=== PATIENT | male | born 1990 | race Caucasian/White ===

== ENCOUNTER 2018-08-04 21:17 | Emergency (ER) | payer OTHER, SELFPAY ==
[2018-08-04 21:24] VITALS: BP 123/71; PULSE 101; RESP 18; TEMP 36.4; O2SAT 99; BMI 25.7
--- NOTE | 2018-08-04 21:25 | ED_ITS ---
HPI - Chest Pain General Chief Complaint: Chest Pain Stated Complaint: Chest Pain Time Seen by Provider: 08/04/18 21:25 Source: patient Mode of arrival: EMS Limitations: no limitations History of Present Illness HPI narrative: The patient developed achy lower midsternal chest pain yesterday. The pain became quite sharp today. He has some radiation to the left arm and elbow. He has no radiation to the back. He has no associated dyspnea, weakness or dizziness. He has no recent illness. He has no known history of cardiac disease. He has chronic back pain, he has undergone lumbar surgery for a herniated disc. [place] is [place] tried him with Cymbalta for pain management. From the Cymbalta he developed tachycardia, and other discomforts. The Cymbalta was stopped 6 days ago. He was not symptomatic between then and 2 days ago. He is currently taking no medications for his low back pain. He has no weakness and numbness in the lower extremities. He denies hypertension, high cholesterol or diabetes. There is no obvious family history of early cardiac disease. He chews tobacco. He underwent an echocardiogram March 2018. Other than trace mitral regurg, the study was otherwise normal. Related Data Home Medications Medication Instructions Recorded Confirmed duloxetine [Cymbalta] 30 mg PO BID 08/03/18 08/03/18 ibuprofen 400 mg PO Q4-6H PRN 08/03/18 08/03/18 omeprazole 20 mg PO DAILY 08/03/18 08/03/18 Previous Rx's Medication Instructions Recorded ibuprofen 600 mg PO TID-QID PRN #60 tab 08/04/18 Allergies Allergy/AdvReac Type Severity Reaction Status Date / Time No Known Drug Allergies Allergy Verified 08/04/18 21:27 Review of Systems Constitutional Reports as per HPI, Denies chills, Denies fever(s), Denies lethargy and Denies weakness Eyes Denies change in vision ENT Ears, Nose, Mouth, and Throat: Denies dizziness, Denies neck pain and Denies throat swelling Cardiovascular Reports chest pain, Denies irregular heart rhythm, Denies lightheadedness, Denies palpitations, Denies dyspnea, Denies dyspnea on exertion and Denies orthopnea Respiratory Denies cough, Denies dyspnea, Denies dyspnea on exertion and Denies wheezing Gastrointestinal Gastrointestinal: Denies abdominal pain, Denies diarrhea, Denies nausea and Denies vomiting Genitourinary Denies urinary frequency and Denies urinary urgency Musculoskeletal Reports back pain, Denies myalgias and Denies neck pain Integumentary/Breasts Denies erythema and Denies rash Neurologic Denies confusion, Denies dizziness and Denies weakness Psychiatric Denies confusion Endocrine Denies palpitations Hematologic/Lymphatic Denies easy bleeding Allergic/Immunologic Denies throat swelling and Denies wheezing [facility] Medical History Chest pain (Acute) MRSA (methicillin resistant Staphylococcus aureus) (Acute) Numbness (Acute) Numbness and tingling of both legs (Acute) Peritonsillar abscess (Acute) [place] teeth removed (Acute) Surgical History H/O lumbar discectomy (Acute) Social History Smoking Status: Unknown if ever smoked Smokeless tobacco user: chewing tobacco alcohol intake: current Exam Initial Vital Signs Initial Vital Signs: Vital Signs Temperature 97.5 F L 08/04/18 21:24 Pulse Rate 101 H 08/04/18 21:24 Respiratory Rate 18 08/04/18 21:24 Blood Pressure 123/71 08/04/18 21:24 Pulse Oximetry 99 08/04/18 21:24 Const General: cooperative, healthy appearing, comfortable, well developed and well groomed Nutritional Appearance: well nourished Orientation: alert, awake, oriented x3 and not confused [facility] Head: normocephalic and atraumatic Mouth: oral mucosae normal and moist mucous membranes Throat: posterior oropharynx normal Neck Neck: No anterior neck swelling and No lymphadenopathy Chest Chest: normal inspection of the chest and localized rib tenderness with anteroposterior compression Resp Effort & Inspection: normal respiratory effort and able to speak in complete sentences Auscultation: clear to auscultation bilaterally, no rales, no rhonchi and no wheezes Cardio Rate: regular rate Rhythm: regular rhythm Heart Sounds: no click, no gallops, no murmurs and no rubs Pulses: normal peripheral pulses GI Inspection: non-distended Palpation: soft, no hepatosplenomegaly, No guarding, No pulsatile mass and No tender Auscultation: normal bowel sounds Back/Spine/Pelvis Back: normal to inspection and No CVA tenderness Cervical Spine: cervical ROM normal and No pain with cervical ROM Thoracic/Lumbar Spine: thoracic and lumbar spine normal to inspection Skin General: no rashes or lesions noted Neuro General: alert, oriented x3, gait normal and no focal motor deficits Speech: speech normal Extrem General: full ROM, no clubbing, cyanosis or edema, no pedal edema and no calf tenderness Course Orders Ordered: ED Orders 08/04/18 21:25 Complete Blood Count AUTO DIFF Stat Comprehensive Metabolic Panel Stat D Dimer Stat Partial Thromboplastin Time Stat Prothrombin Time INR Stat Troponin & CK Cardiac Panel Stat 08/04/18 21:36 XR chest 1V Stat EKG-12 Lead Stat Discontinued Medications Ketorolac Tromethamine (Toradol) 30 mg IV NOW ONE Stop: 08/04/18 21:38 Last Admin: 08/04/18 21:43 Dose: 30 mg Vital Signs - 8 hr 08/04/18 21:24 08/04/18 22:00 08/04/18 23:08 Temperature 97.5 F L Pulse Rate 101 H 89 86 Respiratory Rate 18 19 18 Blood Pressure 123/71 Blood Pressure [Left Arm] 117/72 139/95 H Pulse Oximetry 99 98 97 MDM - Chest Pain Lab Data Result diagrams: 08/04/18 21:25 08/04/18 21:25 Lab Results 08/04/18 08/04/18 08/04/18 Range/Units 21:25 21:25 21:25 WBC 10.7 (4.5-11.0) X10^3/uL RBC 5.02 (4.5-5.9) X10^6/uL Hgb 15.0 (13.5-17.5) g/dL Hct 43.5 (41-53) % MCV 86.6 (80-100) fL MCH 29.9 (26-34) PG MCHC 34.6 (30-36) % RDW 13.6 (11.6-14.8) % Plt Count 358 (150-400) X10^3/uL Neut % (Auto) Not Reportable Lymph % (Auto) Not Reportable [place] % (Auto) Not Reportable Eos % (Auto) Not Reportable Baso % (Auto) Not Reportable Total Counted 100 Seg Neutrophils % 71.0 H (38-70) % Lymphocytes % (Manual) 22.0 L (25-45) % Monocytes % (Manual) 5.0 (2-11) % Eosinophils % (Manual) 1.0 L (2-4) % Basophils % (Manual) 1.0 (0-1) % Neutrophils # (Manual) 7597 H (0788-4559) /uL RBC Morphology Normal morphology PT 11.2 (10.1-12.7) SECONDS INR 1.0 (0.9-1.3) APTT 27 (26.4-36.2) SECONDS D-Dimer < 200 (<230) ng/mL Sodium 142 (137-145) mmol/L Potassium 4.1 (3.4-5.1) mmol/L Chloride 101 (98-107) mmol/L Carbon Dioxide 30 (22-32) mmol/L BUN 10 (9-20) mg/dL Creatinine 0.90 (0.66-1.25) mg/dL Estimated GFR > 60.0 (>60) mL/min BUN/Creatinine Ratio 11.1 (6-22) Glucose 100 (70-100) mg/dL Calcium 9.5 (8.4-10.2) mg/dL Total Bilirubin 0.5 (0.2-1.3) mg/dL AST 54 (17-59) IU/L ALT 84 H (21-72) IU/L Alkaline Phosphatase 58 (38-126) U/L Total Creatine Kinase 136 (55-170) U/L CK-MB (CK-2) 0.78 (<2.37) ng/mL CK-MB (CK-2) Rel Index 0.6 L (1.5-5.0) % Troponin I < 0.012 (0.01-0.034) ng/mL Total Protein 7.8 (6.3-8.2) g/dL Albumin 4.7 (3.5-5.0) g/dL Globulin 3.1 (1.7-4.1) g/dL Albumin/Globulin Ratio 1.5 (1.0-2.8) Imaging Data Chest x-ray: My impression: Normal ECG Data Attestation: I personally reviewed and interpreted this ECG as follows: MDM Narrative Medical decision making narrative: The patient has no evidence of an acute coronary event, clotting issues, infection, or lung abnormalities. He has improved with Toradol. Exam is consistent with costochondritis. He will be discharged on ibuprofen. Discharge Plan Departure Patient Disposition: Home Clinical Impression: Acute costochondritis Instructions: Costochondritis Activity Restrictions/Additional Instructions: Motrin 600 mg every 6 hr as needed for pain. Follow up with her doctor if symptoms persist. Return here for significant worsening of symptoms, shortness of breath, coughing up blood, or feeling like her going to pass out. Prescriptions: New ibuprofen 600 mg tablet 600 mg PO TID-QID PRN (Reason: pain) Qty: 60 RF: 0 No Action ibuprofen 400 mg Tablet 400 mg PO Q4-6H PRN (Reason: pain) RF: 0 omeprazole 20 mg Capsule,Delayed Release(Dr/Ec) 20 mg PO DAILY RF: 0 duloxetine [Cymbalta] 30 mg Capsule,Delayed Release(Dr/Ec) 30 mg PO BID RF: 0
--- NOTE | 2018-08-04 21:34 | PC.NURSE ---
intermittent sharp chest pain, began yesterday, greatly increased today while ambulating from vehicle, decreased from 09/06 to 06/06 following 10mg MS and Nitro SL x2 per ems, NSR on monitor, denies soa/dizziness/nausea/diarrhea/cough/trauma or recent illness, breath sounds clear/equal
--- NOTE | 2018-08-04 21:36 | DI.RAD.S_ITS ---
PROCEDURE: XR CHEST 1V INDICATIONS: chest pain TECHNIQUE: One view of the chest was acquired. COMPARISON: None. FINDINGS: Surgical changes and devices: None. Lungs and pleura: No pleural effusions or pneumothorax. Lungs are clear. Mediastinum: Mediastinal contours appear normal. Heart size is normal. Bones and chest wall: No suspicious bony lesions. Overlying soft tissues appear unremarkable. IMPRESSION: No acute cardiopulmonary pathology. Dictated by: Tito Renae M.D. on 08/05/2018 at 10:11 Approved by: Tito Renae M.D. on 08/05/2018 at 10:12
[2018-08-04] MEDS: KETOROLAC 60 MG/2 ML VIAL 30 MG IV (21:43)
[2018-08-04 21:48] LABS: Prothrombin Time 11.2 SECONDS (10.1-12.7)
[2018-08-04 21:51] LABS: Hematocrit 43.5 % (41-53); Mean Corpuscular HGB Conc 34.6 % (30-36); Mean Corpuscular Hemoglobin 29.9 PG (26-34); Mean Corpuscular Volume 86.6 fL (80-100); PTT Partial Thromboplastin Tim 27 SECONDS (26.4-36.2); Platelet Count 358 X10^3/uL (150-400); Red Blood Cell Count 5.02 X10^6/uL (4.5-5.9); Red Cell Distribution Width 13.6 % (11.6-14.8); White Blood Cell Count 10.7 X10^3/uL (4.5-11.0)
[2018-08-04 21:52] LABS: Alanine Aminotransferase 84 IU/L (21-72); Albumin 4.7 g/dL (3.5-5.0); Albumin Globulin Ratio 1.5 (1.0-2.8); Alkaline Phosphatase 58 U/L (38-126); Aspartate Aminotransferase 54 IU/L (17-59); BUN Creatinine Ratio 11.1 (6-22); Bilirubin Total 0.5 mg/dL (0.2-1.3); Blood Urea Nitrogen 10 mg/dL (9-20); Calcium 9.5 mg/dL (8.4-10.2); Carbon Dioxide 30 mmol/L (22-32); Chloride 101 mmol/L (98-107); Creatine Kinase 136 U/L (55-170); Estimated Glomerular Filt Rate > 60.0 mL/min (>60); Globulin 3.1 g/dL (1.7-4.1); Glucose 100 mg/dL (70-100); HEMOLYSIS 39 (0-50); Potassium 4.1 mmol/L (3.4-5.1); Sodium 142 mmol/L (137-145); Total Protein 7.8 g/dL (6.3-8.2)
[2018-08-04 21:57] LABS: Add Manual Diff / Slide Review YES; D Dimer < 200 ng/mL (<230)
[2018-08-04 22:00] VITALS: BP 117/72; PULSE 89; RESP 19; O2SAT 98
[2018-08-04 22:06] LABS: Troponin I < 0.012 ng/mL (0.01-0.034)
[2018-08-04 22:07] LABS: CKMB % Relative Index 0.6 % (1.5-5.0); Creatine Kinase MB 0.78 ng/mL (<2.37)
[2018-08-04 22:11] LABS: Neutrophils Absolute Manual 7597 /uL (3000-5900); RBC Morphology Normal Morphology; Total Cells Counted 100
[2018-08-04 23:08] VITALS: BP 139/95; PULSE 86; RESP 18; O2SAT 97
== END 2018-08-04 23:18 | disposition home or self-care (01) ==
PROVIDERS: Emergency Provider Emergency Medicine
DX: M94.0 Chondrocostal junction syndrome [Tietze] (principal)
CPT/HCPCS: 71045; 80053; 82550; 82553; 84484; 85025; 85379; 85610; 85730; 93005; 93010; 96374; 99282; 99285; J1885

== ENCOUNTER 2018-08-22 05:46 | Inpatient (IN) | payer OTHER, SELFPAY ==
[2018-08-03 13:59] VITALS: BMI 26.0
[2018-08-22] VITALS (14 sets, daily range): BP systolic 120–155; BP diastolic 81–99; PULSE 78–100; RESP 9–24; TEMP 36.1–36.8; O2SAT 93–99; BMI 26.0
--- NOTE | 2018-08-22 | DI.RAD.S_ITS ---
PROCEDURE: XR LUMBAR SPINE 2-3V INDICATIONS: L5-S1 TLIF AND REVISION DISCECTOMY FINDINGS: 2 limited intraoperative fluoroscopically stored images of the lumbosacral spine were obtained for intraoperative hardware localization purposes. These images are not meant for diagnostic purposes. Intraoperative findings related to a L5-S1 fusion are present. IMPRESSION: Intraoperative images obtained during the patient's lumbosacral fusion procedure. Dictated by: Adis Richard M.D. on 08/22/2018 at 9:52 Approved by: Adis Richard M.D. on 08/22/2018 at 10:00
[2018-08-22] MEDS: LACTATED RINGERS 1,000 ML 42 ML IV (07:04)
--- NOTE | 2018-08-22 07:33 | PM.PREOP ---
Pre-operative Note Interval Note Pre-op Check: Yes History & Physical Reviewed by Physician and Yes Exam Performed Changes: No
--- NOTE | 2018-08-22 07:33 | PM.OP.1 ---
Operative Date/Time/Diagnoses Date of procedure: 08/22/18 Time of procedure: 10:43 Pre-op diagnosis: lumbar stenosis with radiculopathy Lumbar disc herniation with radiculopathy History of lumbar diskectomy Post-op diagnosis: same Procedure & Clinicians Procedure: L5S1 revision laminotomy on left L5S1 TLIF (post/post innerbody fusion) screws cage icbg microscope placement of epidural catheter Same procedure as scheduled: Yes Indications: [age] year old male with intractable pain from recurrent disc herniation. They had failed conservative management and requested operative intervention. Risks and benefits of surgery were discussed and appropriate consents were obtained. Surgeon: José Miguel Peace Oiler And Greaser: Marva Bowie Anesthesia Type: General Operative Notes Findings: none Closure Type: primary Specimen(s): none sent Implants & Drains: NuVasive Reline MAS screws Globus Rise cage Applied: catheter Estimated Blood Loss (mL): 50 Blood products transfused: none Procedure in detail: The patient was brought to the operating room and intubated on the table. A time-out was performed. They were then rolled over to the well-padded Christian table in the prone position. Preoperative antibiotics were given. The back was prepped and draped in the standard sterile fashion. Using fluoroscopy, a 4 cm longitudinal incision was made to the well-marked left of the midline. We used Bovie to come down to and split the lumbodorsal fascia. Using fluoroscopy and monitoring, we then percutaneously placed Jamshidi needles down the pedicles of L5 and S1 on the left side. These were changed out to guidewires and then we tapped and then placed the NuVasive MAS Precept screw shanks. We then opened up the retractors and used Bovie to clear up the posterolateral gutter as well as medially along the lamina to the spinous processes. A bur was used to decorticate the transverse processes. Using a combination of bur and Kerrison rongeurs, a revision left-sided laminotomy was performed at L5-S1. We had to dissect through the scar tissue to expose the dura and free it up from the bone then work out medially and laterally until we could completely free up the exiting nerve root through the facet. We had to remove the adherent facet cyst as well. This required a near complete facetectomy. This was separate and distinct from the TLIF approach as this was a revision surgery with significant scar tissue and much more complex and lengthy than just a standard approach for fusion.. We then began the TLIF prep. A complete facetectomy was finished on this side at L5-S1. We carefully retract the dura across the scar tissue until we could expose the disc. The disc was prepped with bipolar and then an annulotomy was performed. We performed a complete diskectomy using a combination of paddles, molly, Kerrison, and curettes. We distracted the disc using a paddle and locked the retractor in an open position. We then filled the disc space with Osteocell bone graft. We then placed the globus Rise cage under fluoroscopy and then filled this in with more bone graft. The distraction on the retractor was released to compress down. This completed the posterior interbody fusion portion of the TLIF at L5-S1. We then placed the screw heads, andrea, and locked down the set screws. The wound was copiously irrigated. A small stab incision was made over the PSIS. We used a Jamshidi needle to aspirate several mL of bone marrow from the pelvis. This was mixed with the remaining Osteocell and combined with all of the locally harvested bone graft and placed in the posterolateral gutter for the posterior fusion of the TLIF at L5-S1. An epidural catheter was then placed in the spinal canal by carefully depressing the dura and advancing it 6 cm cephalad under the remaining lamina without resistance. The muscle fascia was closed. The catheter was then injected with a solution containing 4 mL of 0.5% Marcaine, 1 mg Stadol, 4 mg Duramorph, and 100 mcg of fentanyl. This was injected without resistance and the catheter was pulled. We then went to the opposite side. Again using fluoroscopy, a 3 cm incision was made and Bovie was used to come down to split the fascia. Using neural monitoring and fluoroscopy, Jamshidi needles were advanced down the pedicles of L5 and S1 on the right side. These were switched over guidewires, tapped, and screws placed. We then placed a andrea and locked the set screws on this side. The wound was irrigated. The fascia was closed. Vancomycin powder was placed in the wounds. The superficial and skin were closed. A sterile dressing was placed. The patient was then rolled over extubated and brought to recovery room without complications. Complications: none Condition: stable Disposition: PACU Plan for aftercare: Inpatient. Up with physical therapy.
[2018-08-22] MEDS: CEFAZOLIN 2 GM/100 ML FROZ.PIGGY IV ×2 (07:51→16:04)
--- NOTE | 2018-08-22 08:34 | SUR.OPER ---
Prone on spine table, head in foam head support, padded chest and pelvic supports, gel pad at knees, lower legs supported by pillows; nipples, genitalia and toes free of pressure, arms secured on foam padded arm boards at <90 degrees abduction. Tape over blanket at thigh secured to table.
[2018-08-22] MEDS: THROMBIN (BOVINE) 5,000 UNIT VIAL 5000 UNIT TOP (08:45)
[2018-08-22] MEDS: SODIUM CHLORIDE 0.9% 1,000 ML, GENTAMICIN 80 MG IRR (08:46)
[2018-08-22] MEDS: VANCOMYCIN 1,000 MG VIAL 1000 MG TOP (08:46)
[2018-08-22] MEDS: BUPIVACAINE 0.5% (PF) 4 ML, MORPHINE-PF 4 MG, BUTORPHANOL 1 MG, fentaNYL 100 MCG INJ (10:00)
[2018-08-22] MEDS: fentaNYL 100 MCG/2 ML INJ 50 MCG IV ×2 (11:30→11:38)
--- NOTE | 2018-08-22 12:32 | PC.NURSE ---
Admit Note: Patient arrived via bed from pacu at 1200 this shift. Patient alert times 3 but drowsy. Patient easily awakens. No acute distress, dressing clean, dry, intact. Will continue to monitor. Tan to gravity.
[2018-08-22] MEDS: LACTATED RINGERS 1,000 ML 125 ML IV ×2 (12:34→20:37)
[2018-08-22] MEDS: HYDROCODONE/ACET 5/325 TABLET 2 TAB PO ×2 (12:59→19:02)
[2018-08-22] MEDS: hydrOXYzine pamoate 25 MG CAPSULE PO ×2 (13:00→19:02)
[2018-08-22] MEDS: CELECOXIB 200 MG CAPSULE 400 MG PO (14:16)
--- NOTE | 2018-08-22 15:30 | PT.IIE ---
Current Diagnoses Spinal stenosis, lumbar region with neurogenic claudication (08/22/18) Intervertebral disc disorders with radiculopathy, lumbar region (08/22/18) Strain of muscle, fascia and tendon of lower back, subsequent encounter (08/22/18) Other specified postprocedural states (08/22/18) Surgery Performed Operation Date: 08/22/18 07:45 Actual Procedures p L5-S1 Revision Discectomy and TLIF - José Miguel Peace MD Surgical History (Last Reviewed 08/04/18 @ 21:43 by Hoang Perla MD) H/O lumbar discectomy (Acute) Medical History (Last Reviewed 08/04/18 @ 21:43 by Hoang Perla MD) Chest pain (Acute) MRSA (methicillin resistant Staphylococcus aureus) (Acute) Numbness (Acute) Numbness and tingling of both legs (Acute) Peritonsillar abscess (Acute) [place] teeth removed (Acute) Physical Therapy Inpatient Evaluation/Re-Eval M1 PT/OT-IP Prior Functional Status Start: 08/22/18 17:17 Freq: NEEDED Status: Active Protocol: Document 08/22/18 15:30 AB (Rec: 08/22/18 17:32 AB [email or web address]) Medical Review Prior Functional Status Medical History Reviewed Yes Communication able to make needs known Mobility and Gait pt stated that he is independent with all mobilities and ambulation without AD but may require assistance with betting his shoes on due to his back issues Prior Functional Level (Other details) Pt lives in [place] and 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 stated that he has h/o falls due to knees giving out on him . Last fall was last tuesday with R knee giving out but prior to that, mostly the L knee gives out on him. Social History Household Members none Living Arrangements House Number of Floors (Floors) One Floor Number of Stairs To Enter/Railing? has 5 platform steps down to get into front door; has 1 step up from living room to kitchen/bedroom area Home Environment Standard Height Toilet Walk in Shower Home Equipment Grab Bars In Shower Additional Social History Comment pt plans to go home and his girlfriend and father will assist him. M2 PT-IP Current Condition Start: 08/22/18 17:17 Freq: NEEDED Status: Active Protocol: Document 08/22/18 15:30 AB (Rec: 08/22/18 17:32 AB [email or web address]) Physical Therapy Current Condition Current Condition Evaluation Date 08/22/18 Treatment Diagnosis s/p L5S1 revision laminotomy L ; TLIF; difficulty in walking Onset Date 08/22/18 Precautions Lumbar Precautions Log Roll No Twisting Limit Bending Lifting Restriction of 10 lbs Gait Belt above Incisional Area M3 PT-IP Subjective Start: 08/22/18 17:17 Freq: NEEDED Status: Active Protocol: Document 08/22/18 15:30 AB (Rec: 08/22/18 17:32 AB [email or web address]) Subjective Physical Therapy Visit Type Type Initial Evaluation Visit Start Time 15:30 Visit Stop Time 16:24 Total Visit Minutes 54 Number of MOVEMENT EDUCATION SPECIALIST Visits 0 Therapy Pain Assessment Pain When Pain Assessed At Rest Pain Present Pain Present Pain Reported Location Lower Back Intensity 8 Scale Used Numeric (1 - 10) Pain Behaviors Calling Out Facial Grimacing Guarding Pain Management Techniques Re-positioning Timing of Activity with Medications M4 PT-IP Mobility and Gait Start: 08/22/18 17:17 Freq: NEEDED Status: Active Protocol: Document 08/22/18 15:30 AB (Rec: 08/22/18 17:32 AB [email or web address]) PT-Bed Mobility Assessment Rolling Type of Rolling Log Rolling Level of Assist Standby Assistance Supine to Sit Supine to Sit Standby Assistance Sit to Supine Sit to Supine Minimal Assistance Scooting Scooting to Edge of Bed Moderate Assistance Scooting Up and Down in Bed Moderate Assistance Maximum Assistance PT-Transfer Assessment Sit to and From Stand Sit to and from Stand Moderate Assistance Maximum Assistance 1 Person Assistance Use of Upper Extremities Equipment Transfer Assistive Device Bed Rail Front Wheeled Walker Orthotic/Prosthetic Devices or Brace: No Gait Assessment Gait Gait Assistance Required: Moderate Assistance Maximum Assistance Distance (Feet) 12 Able to Maintain Weight Bearing Status Yes During Gait Assistive Devices Assistive Device Gait Belt Front Wheeled Walker Orthotic/Prosthetic Devices or Brace: No Gait Deviations General Gait Pattern Antalgic Decreased Stride Length Decreased Feet Clearance Step-to Gait Factors Limiting Gait Function Factors Limiting Gait Function Decreased Activity Tolerance Decreased Sensation Decreased Strength Difficulty Following Directions Limited Range of Motion Pain Poor Balance Poor Safety Awareness Comments Gait Comments pt with c/o increase pain with mobility/ambulation. Pt ambulated using FWW mod to max A and presents with shuffling gait. PT-Balance Assessment Sitting Balance and Reactions Static Sitting Balance Ability Good Dynamic Sitting Balance Ability Good Standing Balance and Reactions Static Standing Balance Ability Fair Dynamic Standing Balance Ability Fair Device Used FWW M5 PT-IP Objective Assessments Start: 08/22/18 17:17 Freq: NEEDED Status: Active Protocol: Document 08/22/18 15:30 AB (Rec: 08/22/18 17:32 AB [email or web address]) Orientation Orientation/Cognition Level of Alertness Alert Orientation Name Age Birthday Month Date Year Day of Week Place Situation Safety Awareness Decreased Safety Awareness Gross Range of Motion Lower Extremity ROM Assessment Bilaterally Impaired Impairments pain limiting ROM on BLE Strength Lower Extremity Strength Assessment Bilaterally Impaired Comments Strength Comments LLE weaker than RLE LLE 3-/5 RLE 3+/5 Sensation Assessment Sensation Gross Sensation Left LE Impaired Light Touch Impaired M6 PT-IP Treatment Start: 08/22/18 17:17 Freq: NEEDED Status: Active Protocol: Document 08/22/18 15:30 AB (Rec: 08/22/18 17:32 AB [email or web address]) Physical Therapy Treatment Education Education Provided Precautions Weight Bearing Status Post-Op Packet Safety M7 PT-IP Assessment and Plan Start: 08/22/18 17:17 Freq: NEEDED Status: Active Protocol: Document 08/22/18 15:30 AB (Rec: 08/22/18 17:32 AB [email or web address]) PT Summary Assessment and Plan Potential Rehabilitation Potential Fair Status of Condition at Evaluation Evolving Summary Impairments Pain ROM Strength Balance Coordination Sensation Tone Cognition Bed Mobility Transfers Gait Activity Tolerance Assessment Summary pt requiring mod to max A with transfers and ambulation with c/o increase pain affecting mobility. pt requires further assessment to determine d/c plans. caregiver training will be conducted when appropriate and if girlfriend and pt's father are able to assist pt safely, pt may go home. Stair climbing also has to be completed prior to d/c. Goals Bed Mobility Goal Standby Assistance Transfer Goal Standby Assistance Gait Goal Standby Assistance Gait Distance 200 Other Goals up/down 5 steps using FWW SBA Days to Meet Goals 3 Frequency of Treatment Frequency Of Treatment Twice a Day Treatment Plan Physical Therapy Treatment Plan Bed Mobility Training Transfer Training Gait Training Therapeutic Exercise Balance Retraining Post Op Education Discharge Planning Hot or Cold Pack Neuromuscular Re-ed Coordination Retraining Manual Therapy Recommendations To Nursing Amount of Assist Needed 1 Person Assist Discharge Recommendations PT Discharge Recommendations Home with 20/06 Assist Home Health Equipment Needed for Home Before FWW Discharge
[2018-08-22] MEDS: DOCUSATE 100 MG CAPSULE PO (20:37)
[2018-08-22] MEDS: GABAPENTIN 300 MG CAPSULE PO (20:37)
[2018-08-22] MEDS: CELECOXIB 200 MG CAPSULE PO (20:37)
[2018-08-22] MEDS: DULOXETINE 30 MG CAPSULE PO (20:37)
[2018-08-22] MEDS: SENNOSIDES 8.6 MG TABLET 17.2 MG PO (20:37)
[2018-08-23] VITALS (7 sets, daily range): BP systolic 116–135; BP diastolic 56–77; PULSE 66–92; RESP 16–20; TEMP 36.3–37.1; O2SAT 94–98
[2018-08-23] MEDS: CEFAZOLIN 2 GM/100 ML FROZ.PIGGY IV (01:00)
--- NOTE | 2018-08-23 04:00 | PC.NURSE ---
NOC patient asleep for most of shift, but awakes to voice and touch. Reports 5/10 pain, but states he is able to tolerate it if sleeping. VS stable. Tan draining to gravity. LR at 125/hr. Patient able to reposition independently in bed. Dressing is cdi. Sensations good. Friend asleep in room.
[2018-08-23] MEDS: PANTOPRAZOLE 20 MG TABLET PO (05:24)
[2018-08-23 05:36] LABS: Hematocrit 38.1 % (41-53); Hemoglobin 13.4 g/dL (13.5-17.5)
--- NOTE | 2018-08-23 07:55 | P.PN_ITS ---
Subjective Date Patient Seen: 08/23/18 Time Patient Seen: 07:54 Interval history: He was up with physical therapy but his legs felt shaky. No more pain in the legs but still feels weak in the left leg. Pain all in the back , about 6/10 right now. Much worse with mobility. Exam Vital Signs (past 8 hours): - 08/23/18 01:00 08/23/18 05:36 Temperature 98.7 F 98.2 F Pulse Rate 92 H 78 Respiratory Rate 16 16 Blood Pressure 121/56 L 116/57 L Pulse Oximetry 94 94 Oxygen Delivery Method Nasal Cannula Oxygen Flow Rate 1 Const Orientation: alert and oriented x3 Back/Spine/Pelvis Other: Dressing clean dry intact. 5/5 motor both lower extremities except for 4/ 5 left AT/EHL/plantar flexion Objective Labs Result Diagrams: 08/23/18 05:17 Labs: Laboratory Results - last 24 hr 08/23/18 05:17 Hgb 13.4 L Hct 38.1 L Assessment & Plan Post-op Postoperative Procedures Operation Date: 08/22/18 07:45 Actual Procedures Side Surgeon p L5-S1 Revision Discectomy and TLIF José Miguel Peace MD Overall he is as expected. Mobilize with physical therapy. Anticipate probable discharge home tomorrow. Quality VTE Deep Vein Thrombosis/Pulmonary Embolism Present on Admission: No
[2018-08-23] MEDS: HYDROCODONE/ACET 5/325 TABLET 2 TAB PO ×3 (08:40→19:17)
[2018-08-23] MEDS: hydrOXYzine pamoate 25 MG CAPSULE PO ×2 (08:41→21:05)
[2018-08-23] MEDS: CELECOXIB 200 MG CAPSULE PO ×2 (09:05→21:05)
[2018-08-23] MEDS: DOCUSATE 100 MG CAPSULE PO ×2 (09:05→21:05)
[2018-08-23] MEDS: DULOXETINE 30 MG CAPSULE PO ×2 (09:05→21:05)
--- NOTE | 2018-08-23 09:14 | OT.IP.EVAL ---
Current Diagnoses Spinal stenosis, lumbar region with neurogenic claudication (08/22/18) Intervertebral disc disorders with radiculopathy, lumbar region (08/22/18) Strain of muscle, fascia and tendon of lower back, subsequent encounter (08/22/18) Other specified postprocedural states (08/22/18) Surgery Performed Operation Date: 08/22/18 07:45 Actual Procedures p L5-S1 Revision Discectomy and TLIF - José Miguel Peace MD Past Medical History (Last Reviewed 08/04/18 @ 21:43 by Hoang Perla MD) Chest pain (Acute) MRSA (methicillin resistant Staphylococcus aureus) (Acute) Numbness (Acute) Numbness and tingling of both legs (Acute) Peritonsillar abscess (Acute) [place] teeth removed (Acute) Surgical History (Last Reviewed 08/04/18 @ 21:43 by Hoang Perla MD) H/O lumbar discectomy (Acute) Occupational Therapy Inpatient Evaluation/Re-Eval M1 PT/OT-IP Prior Functional Status Start: 08/22/18 17:17 Freq: NEEDED Status: Active Protocol: Document 08/22/18 15:30 AB (Rec: 08/22/18 17:32 AB [id number]) Medical Review Prior Functional Status Medical History Reviewed Yes Communication able to make needs known Mobility and Gait pt stated that he is independent with all mobilities and ambulation without AD but may require assistance with betting his shoes on due to his back issues Prior Functional Level (Other details) Pt lives in [place] and 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 stated that he has h/o falls due to knees giving out on him . Last fall was last tuesday with R knee giving out but prior to that, mostly the L knee gives out on him. Social History Household Members none Living Arrangements House Number of Floors (Floors) One Floor Number of Stairs To Enter/Railing? has 5 platform steps down to get into front door; has 1 step up from living room to kitchen/bedroom area Home Environment Standard Height Toilet Walk in Shower Home Equipment Grab Bars In Shower Additional Social History Comment pt plans to go home and his girlfriend and father will assist him. M1 PT/OT-IP Prior Functional Status Start: 08/23/18 08:58 Freq: NEEDED Status: Active Protocol: Document 08/23/18 08:58 [facility] (Rec: 08/23/18 09:11 [facility] [id number]) Medical Review Prior Functional Status Medical History Reviewed Yes Diet/Fluid Consistency Regular Thin Liquids Communication able to make needs known Mobility and Gait pt stated that he is independent with all mobilities and ambulation without AD but may require assistance with getting his shoes on due to his back issues. Pt states wears slip on boots and shoes at home. Prior Functional Level (Other details) Pt lives in [place] and works for the [employer] in the [employer] department. stated that he has h/o falls due to knees giving out on him . Last fall was last tuesday with R knee giving out but prior to that, mostly the L knee gives out on him. Social History Household Members none Living Arrangements House Number of Floors (Floors) One Floor Number of Stairs To Enter/Railing? has 5 platform steps down to get into front door; has 1 step up from living room to kitchen/bedroom area Home Environment Standard Height Toilet Walk in Shower Home Equipment Grab Bars In Shower Additional Social History Comment pt plans to go home and his girlfriend and father will assist him. Pt states shower too small for shower chair and use of counter to the right of toilet to help get up. M2 OT-IP Current Condition Start: 08/23/18 08:58 Freq: Status: Active Protocol: Document 08/23/18 08:58 [facility] (Rec: 08/23/18 09:11 [facility] [id number]) Occupational Therapy Current Condition Current Condition Evaluation Date 08/23/18 Treatment Diagnosis spinal stenosis Diagnosis Onset Date 08/22/18 Post Operative Precautions Lumbar Precautions Log Roll No Twisting Limit Bending Lifting Restriction of 10 lbs Gait Belt above Incisional Area M3 OT- IP Subjective and Pain Start: 08/23/18 08:58 Freq: Status: Active Protocol: Document 08/23/18 08:58 [facility] (Rec: 08/23/18 09:11 [facility] [id number]) OT- Subjective Occupational Therapy Visit Type Type Initial Evaluation Visit Start Time 08:00 Visit Stop Time 08:45 Total Visit Minutes 45 Occupational Therapy Visit Comments Patient Comments Pt agreeable to get up. Pt's girlfriend presentin room for OT eval. OT Pain Assessment Pain When Pain Assessed At Rest Pain Present Pain Present Pain Reported Location Lower Back Intensity 7 Scale Used Numeric (1 - 10) Description Radiating Pain Behaviors Calling Out Facial Grimacing Wincing Management Techniques Re-positioning Timing of Activity with Medications M4 OT- IP ADL's Start: 08/23/18 08:58 Freq: Status: Active Protocol: Document 08/23/18 08:58 [facility] (Rec: 08/23/18 09:11 [facility] [id number]) OT DKB-Pmic-[place] General Evaluation Self-Feeding Ability Independent OT ADL-Grooming General Evaluation Grooming Ability Standby Assistance Areas Needing Assistance Retrieving/Set-up of Grooming Items Comments OT Grooming Comments SBA as pt able to stand with FWW. VC to spit into cup versus lean over. OT ADL-Oral Care General Eval Oral Care Ability Independent OT ADL-Dressing General Eval Upper Body Dressing Ability Independent Lower Body Dressing Ability Maximum Assistance Areas Needing Assistance Socks Comments OT Dressing Comments Able to educate pt on use of LB AED and pt able to show good understanding for use of digital advertising analyst and sock aid. Pt also issued shoe horn and long handled sponge. Pt states wears slip on shoes at home, emphasized to be sure shoes are well fitting to prevent falls. OT ADL-Toileting Comments OT Toileting Comments Catheter, educated can stand with FWW over toilet, may benefit from BSC as pt very tall. M6 OT- IP Functional Cognition Start: 08/23/18 08:58 Freq: Status: Active Protocol: Document 08/23/18 08:58 [facility] (Rec: 08/23/18 09:11 [facility] [id number]) Cognitive Factors Limiting Selfcare Function Cognitive Ability Level of Alertness Alert Patient Orientation Name Place Situation Attention Span Ability Capable of Focused Attention Capable of Sustained Attention Ability to Follow Commands Able to Follow Multi-Step Commands Memory Description No Deficits Noted Safety Awareness Underestimates Need for Assistance Cognitive Comments Cognitive Assessment Comments Pt doing well for baack precautions and has good understanding to call for assistance if help needed. M7 OT- IP Mobility and Balance Start: 08/23/18 08:58 Freq: Status: Active Protocol: Document 08/23/18 08:58 [facility] (Rec: 08/23/18 09:11 [facility] [id number]) OT- Balance Assessment Sitting Balance and Reactions Static Sitting Balance Ability Normal Dynamic Sitting Balance Ability Normal Standing Balance and Reactions Static Standing Balance Ability Fair Pt able to stand with DUNG assist for balance and to hold FWW in place. Pt will need more assist to stand from lower surfaces. Once up Pt requiring CGA with FWW. Pt very reliant on BUE on FWW to walk. PT to look into taller FWW for pt to try. Pt able to walk to window and back in room to recliner and MODA to slow down decent to recliner. M8 OT- IP Objective Assessments Start: 08/23/18 08:58 Freq: Status: Active Protocol: Document 08/23/18 08:58 [facility] (Rec: 08/23/18 09:11 [facility] [id number]) OT Gross Range of Motion Upper Extremity Range of Motion Assessment Within Functional Limits OT Strength Upper Extremity Strength Assessment Within Functional Limits M9 OT- IP Assessment and Plan Start: 08/23/18 08:58 Freq: Status: Active Protocol: Document 08/23/18 08:58 [facility] (Rec: 08/23/18 09:11 [facility] [id number]) OT Summary Assessment and Plan Potential Rehabilitation Potential Excellent Analytic Complexity at Evaluation Low Summary OT Impairments Pain Strength Balance Functional Mobility Dressing Toileting Bathing Toilet Transfers Shower Transfers Progress Towards Goals Progressing Toward Goals Slow Progress due to Pain Assessment Summary Pt Low complexity and main barrier is pain, steps, and needing assist to stand from lower surfaces. Pt continues to feel numbeness in his legs. Pt looking to go home with assist from girlfriend and father when medically stable. Goals Grooming Goal Independent Dressing Goal Standby Assistance Toileting Goal Standby Assistance Bathing Goal Minimal Assistance Toilet Transfer Goal Contact Guard Assistance Shower Transfer Goal Minimal Assistance Patient/Caregiver Education Goal Demonstrate Post-Op Precautions Caregiver Independent Assisting Patient Days to Meet Goals 3 Frequency of Treatment Frequency Of Treatment Once a Day Treatment Plan OT Treatment Plan ADL Training Functional Mobility Patient/Family Education Discharge Planning Other Treatment Recommendations and Next Family training with Treatment Focus girlfriend, shower and practice with AED. Discharge Recommendations OT Discharge Recommendations Home with Assistance Home Equipment Needs Tall FWW, ?BSC, urinal
--- NOTE | 2018-08-23 10:25 | PT.IPTN ---
Current Diagnoses Spinal stenosis, lumbar region with neurogenic claudication (08/22/18) Intervertebral disc disorders with radiculopathy, lumbar region (08/22/18) Strain of muscle, fascia and tendon of lower back, subsequent encounter (08/22/18) Other specified postprocedural states (08/22/18) Surgery Performed Operation Date: 08/22/18 07:45 Actual Procedures p L5-S1 Revision Discectomy and TLIF - José Miguel Peace MD Physical Therapy Treatment Note M2 PT-IP Current Condition Start: 08/22/18 17:17 Freq: NEEDED Status: Active Protocol: Document 08/22/18 15:30 AB (Rec: 08/22/18 17:32 AB [email or web address]) Physical Therapy Current Condition Current Condition Evaluation Date 08/22/18 Treatment Diagnosis s/p L5S1 revision laminotomy L ; TLIF; difficulty in walking Onset Date 08/22/18 Precautions Lumbar Precautions Log Roll No Twisting Limit Bending Lifting Restriction of 10 lbs Gait Belt above Incisional Area M3 PT-IP Subjective Start: 08/22/18 17:17 Freq: NEEDED Status: Active Protocol: Document 08/23/18 10:25 GGD (Rec: 08/23/18 12:17 GGD [id number]) Subjective Physical Therapy Visit Type Type Treatment Note Visit Start Time 10:00 Visit Stop Time 10:25 Total Visit Minutes 25 Number of FIELD STAFF MANAGER Visits 1 Physical Therapy Visit Comments Patient Comments Pt states he is having pain, but willing to work with PT. Therapy Pain Assessment Pain When Pain Assessed At Rest Pain Present Pain Present Pain Reported Location Lower Back Intensity 7 Scale Used Numeric (1 - 10) Pain Behaviors Guarding Pain Management Techniques Timing of Activity with Medications M4 PT-IP Mobility and Gait Start: 08/22/18 17:17 Freq: NEEDED Status: Active Protocol: Document 08/23/18 10:25 GGD (Rec: 08/23/18 12:17 GGD [id number]) PT-Bed Mobility Assessment Rolling Type of Rolling Log Rolling Level of Assist Standby Assistance Supine to Sit Supine to Sit Standby Assistance Sit to Supine Sit to Supine Contact Guard Assistance Scooting Scooting to Edge of Bed Contact Guard Assistance PT-Transfer Assessment Sit to and From Stand Sit to and from Stand Contact Guard Assistance 1 Person Assistance Use of Upper Extremities Equipment Transfer Assistive Device Gait Belt Front Wheeled Walker Orthotic/Prosthetic Devices or Brace: No Transfers Transfer Destination Bed Gait Assessment Gait Gait Assistance Required: Contact Guard Assist Minimum Assistance 1 Person Assist Distance (Feet) 40 Able to Maintain Weight Bearing Status Yes During Gait Assistive Devices Assistive Device Gait Belt Front Wheeled Walker Orthotic/Prosthetic Devices or Brace: No Gait Deviations General Gait Pattern Antalgic Decreased Stride Length Decreased Feet Clearance Step-to Gait Factors Limiting Gait Function Factors Limiting Gait Function Decreased Sensation Decreased Strength Pain Comments Gait Comments Pt had decrease left knee flexion and foot clearance. M5 PT-IP Objective Assessments Start: 08/22/18 17:17 Freq: NEEDED Status: Active Protocol: Document 08/22/18 15:30 AB (Rec: 08/22/18 17:32 AB [id number]) Orientation Orientation/Cognition Level of Alertness Alert Orientation Name Age Birthday Month Date Year Day of Week Place Situation Safety Awareness Decreased Safety Awareness Gross Range of Motion Lower Extremity ROM Assessment Bilaterally Impaired Impairments pain limiting ROM on BLE Strength Lower Extremity Strength Assessment Bilaterally Impaired Comments Strength Comments LLE weaker than RLE LLE 3-/5 RLE 3+/5 Sensation Assessment Sensation Gross Sensation Left LE Impaired Light Touch Impaired M6 PT-IP Treatment Start: 08/22/18 17:17 Freq: NEEDED Status: Active Protocol: Document 08/23/18 10:25 GGD (Rec: 08/23/18 12:17 GGD [id number]) Physical Therapy Treatment Education Education Provided Weight Bearing Status M7 PT-IP Assessment and Plan Start: 08/22/18 17:17 Freq: NEEDED Status: Active Protocol: Document 08/23/18 10:25 GGD (Rec: 08/23/18 12:17 GGD [id number]) PT Summary Assessment and Plan Summary Assessment Summary Pt needed less assist with bed mobility. He was able to increase in gait distance. He had decrease in foot clearance and knee flexion with gait on the left. He has pain that is limiting his mobility. Frequency of Treatment Frequency Of Treatment Twice a Day Treatment Plan Physical Therapy Treatment Plan Bed Mobility Training Transfer Training Gait Training Therapeutic Exercise Balance Retraining Post Op Education Discharge Planning Hot or Cold Pack Neuromuscular Re-ed Coordination Retraining Manual Therapy Other Recommendations and Next Treatment stair mobility. Focus Recommendations To Nursing Amount of Assist Needed 1 Person Assist Discharge Recommendations PT Discharge Recommendations Home with 20/06 Assist Home Health
--- NOTE | 2018-08-23 15:18 | CM.DANOTE ---
Patient is a 28 year old male who was admitted on 08/22/18 for Spinal surgery. Pt has [employer] for insurance and his PCP is Dr. Steffanie Anguiano. EMR was reviewed. Per MD, pt tolerated procedure well and may be stable for d/c tomorrow pending pain and PT. Per PT, pt is Independent at baseline and does not use DME at base and recommending likely home with HH. SW met bedside with pt and explained role and pt confirmed that he lives at home alone in [place] and works On the [employer] and is Independent with ADL's. Pt denies any hx of HH or SNF and drives. Pt confirms that his local girlfriend and father can assist at d/c and preference is home with HH. SW provided the HH Choice List and preference is [facility]. SW called [facility] with new referral and they confirmed that [employer] can be challenging to get HH auth but requested facesheet to be faxed to review to determine what is needed to get HH. BRITTANI Truong faxed requested facesheet. Plan: SW to follow closely tomorrow with [facility] to determine if pt's insurance will allow for HH at discharge. SAY [place] Discharge Planning/Care Management CM Discharge Assessment Start: 08/23/18 15:16 Freq: Status: Active Protocol: Document 08/23/18 15:16 BF (Rec: 08/23/18 15:18 BF [id number]) Discharge Planning Assessment Assigned Erection Shop Supervisor SAY Parsons Advance Directives? No History Provided By Patient Parents Medical Record Has Patient been admitted in last 30 No days? Prior Living Arrangements House Household Members none Comment Has local supportive gf and father Type of transporation used prior to Drives own vehicle admit Independent with ADL's Yes Is patient alert and oriented? Yes Caregiver for Another No Patient/Family Preference Home with Home Health Barriers to Discharge Yes Comment [employer] may be barrier to HH Discharge Plan Home with Home Health Transportation Arrangement Family can provide transport Referrals Initiated Home Health If patient plan is home with home health No : Has signed face to face form been completed? Medicare Choice List Provided Yes SNF/HH Preference [facility] Whiteboard Updated in Patient Room with Yes name and ext. # of Erection Shop Supervisor Review Status In Process Please Provide Date Initial DC 08/23/18 Assessment Was Performed Next Review Type Continued Stay Review
--- NOTE | 2018-08-23 15:25 | PT.IPTN ---
Current Diagnoses Spinal stenosis, lumbar region with neurogenic claudication (08/22/18) Intervertebral disc disorders with radiculopathy, lumbar region (08/22/18) Strain of muscle, fascia and tendon of lower back, subsequent encounter (08/22/18) Other specified postprocedural states (08/22/18) Surgery Performed Operation Date: 08/22/18 07:45 Actual Procedures p L5-S1 Revision Discectomy and TLIF - José Miguel Peace MD Physical Therapy Treatment Note M2 PT-IP Current Condition Start: 08/22/18 17:17 Freq: NEEDED Status: Active Protocol: Document 08/22/18 15:30 AB (Rec: 08/22/18 17:32 AB [email or web address]) Physical Therapy Current Condition Current Condition Evaluation Date 08/22/18 Treatment Diagnosis s/p L5S1 revision laminotomy L ; TLIF; difficulty in walking Onset Date 08/22/18 Precautions Lumbar Precautions Log Roll No Twisting Limit Bending Lifting Restriction of 10 lbs Gait Belt above Incisional Area M3 PT-IP Subjective Start: 08/22/18 17:17 Freq: NEEDED Status: Active Protocol: Document 08/23/18 15:25 GGD (Rec: 08/23/18 16:55 GGD [id number]) Subjective Physical Therapy Visit Type Type Treatment Note Visit Start Time 15:00 Visit Stop Time 15:25 Total Visit Minutes 25 Number of AMUSEMENT MACHINE MECHANIC Visits 2 Physical Therapy Visit Comments Patient Comments Pt states he would like to use the bathroom. Therapy Pain Assessment Pain When Pain Assessed At Rest Pain Present Pain Present Pain Reported Location Lower Back Intensity 6 Scale Used Numeric (1 - 10) M4 PT-IP Mobility and Gait Start: 08/22/18 17:17 Freq: NEEDED Status: Active Protocol: Document 08/23/18 15:25 GGD (Rec: 08/23/18 16:55 GGD [id number]) PT-Bed Mobility Assessment Rolling Type of Rolling Log Rolling Level of Assist Standby Assistance Supine to Sit Supine to Sit Standby Assistance Sit to Supine Sit to Supine Contact Guard Assistance Scooting Scooting to Edge of Bed Contact Guard Assistance PT-Transfer Assessment Sit to and From Stand Sit to and from Stand Contact Guard Assistance 1 Person Assistance Use of Upper Extremities Equipment Transfer Assistive Device Gait Belt Front Wheeled Walker Orthotic/Prosthetic Devices or Brace: No Transfers Transfer Destination Bed Toilet Comments Mobility Comments needed cues for hip hinge with sit <> stand Gait Assessment Gait Gait Assistance Required: Contact Guard Assist Minimum Assistance 1 Person Assist Distance (Feet) 150 Able to Maintain Weight Bearing Status Yes During Gait Assistive Devices Assistive Device Gait Belt Front Wheeled Walker Orthotic/Prosthetic Devices or Brace: No Gait Deviations General Gait Pattern Antalgic Decreased Stride Length Decreased Feet Clearance Step-to Gait Comments Gait Comments Pt left decrease in foot clearance and shuffed gait pattern. M5 PT-IP Objective Assessments Start: 08/22/18 17:17 Freq: NEEDED Status: Active Protocol: Document 08/22/18 15:30 AB (Rec: 08/22/18 17:32 AB [email or web address]) Orientation Orientation/Cognition Level of Alertness Alert Orientation Name Age Birthday Month Date Year Day of Week Place Situation Safety Awareness Decreased Safety Awareness Gross Range of Motion Lower Extremity ROM Assessment Bilaterally Impaired Impairments pain limiting ROM on BLE Strength Lower Extremity Strength Assessment Bilaterally Impaired Comments Strength Comments LLE weaker than RLE LLE 3-/5 RLE 3+/5 Sensation Assessment Sensation Gross Sensation Left LE Impaired Light Touch Impaired M6 PT-IP Treatment Start: 08/22/18 17:17 Freq: NEEDED Status: Active Protocol: Document 08/23/18 15:25 GGD (Rec: 08/23/18 16:55 GGD [id number]) Physical Therapy Treatment Education Education Provided Weight Bearing Status M7 PT-IP Assessment and Plan Start: 08/22/18 17:17 Freq: NEEDED Status: Active Protocol: Document 08/23/18 15:25 GGD (Rec: 08/23/18 16:55 GGD [id number]) PT Summary Assessment and Plan Summary Assessment Summary Pt improving with bed mobility and gait distance. He has decrease in foot clearance, improved with gait. He improved with knee flexion. He has increase in pain limiting his mobility. Frequency of Treatment Frequency Of Treatment Twice a Day Treatment Plan Physical Therapy Treatment Plan Bed Mobility Training Transfer Training Gait Training Therapeutic Exercise Balance Retraining Post Op Education Discharge Planning Hot or Cold Pack Neuromuscular Re-ed Coordination Retraining Manual Therapy Other Recommendations and Next Treatment stair mobility. Focus Recommendations To Nursing Amount of Assist Needed 1 Person Assist Discharge Recommendations PT Discharge Recommendations Home with 20/06 Assist Home Health
[2018-08-23] MEDS: SENNOSIDES 8.6 MG TABLET 17.2 MG PO (21:05)
[2018-08-23] MEDS: GABAPENTIN 300 MG CAPSULE PO (21:05)
--- NOTE | 2018-08-23 21:53 | PC.NURSE ---
Aria Shift: Patient ambulating well with PT and in room to bathroom. Patient able to void post-cath. Patient tolerating pain with vicodin. Vistaril made patient very drowsy during day. Patient asked to not have it until bedtime. No acute distress. Will continue to monitor. Call light in reach.
[2018-08-24 00:50] VITALS: BP 127/65; PULSE 63; RESP 14; TEMP 36.4; O2SAT 95
[2018-08-24] MEDS: HYDROCODONE/ACET 5/325 TABLET 2 TAB PO ×3 (01:13→10:17)
[2018-08-24 04:00] VITALS: BP 120/63; PULSE 67; RESP 14; TEMP 36.6; O2SAT 94
[2018-08-24] MEDS: PANTOPRAZOLE 20 MG TABLET PO (06:20)
--- NOTE | 2018-08-24 07:01 | PC.NURSE ---
08/24 @ 0600. Patient up to bathroom to try to void. Did not void. Patient tried to void using urinal in bed. No results. Bladder scanned patient. Per Bladder scan patient has 408cc in bladder. Reported to Angelika Boyer RN
[2018-08-24] MEDS: hydrOXYzine pamoate 25 MG CAPSULE PO (07:45)
--- NOTE | 2018-08-24 07:48 | P.PN_ITS ---
Subjective Date Patient Seen: 08/24/18 Time Patient Seen: 07:46 Interval history: Pain is about 6/10 with medication. Still worse with getting up and moving around. Still tingling and weak on the left leg Exam Vital Signs (past 8 hours): - 08/24/18 00:50 08/24/18 04:00 Temperature 97.5 F L 97.9 F Pulse Rate 63 67 Respiratory Rate 14 14 Blood Pressure 127/65 120/63 Pulse Oximetry 95 94 Oxygen Delivery Method Nasal Cannula Oxygen Flow Rate 1 Const Orientation: alert and oriented x3 Back/Spine/Pelvis Other: Dressing clean dry intact. 5/5 motor both lower extremities except for 4/ 5 left AT/EHL/plantar flexion Objective Labs Result Diagrams: 08/23/18 05:17 Assessment & Plan Post-op Postoperative Procedures Operation Date: 08/22/18 07:45 Actual Procedures Side Surgeon p L5-S1 Revision Discectomy and TLIF José Miguel Peace MD slow to progress. Continue mobilization with physical therapy. If he is doing well could discharge home this afternoon or possibly tomorrow. Quality VTE Deep Vein Thrombosis/Pulmonary Embolism Present on Admission: No
[2018-08-24 08:00] VITALS: BP 129/77; PULSE 71; RESP 16; TEMP 36.7; O2SAT 95
[2018-08-24] MEDS: CELECOXIB 200 MG CAPSULE PO (08:22)
[2018-08-24] MEDS: DOCUSATE 100 MG CAPSULE PO (08:22)
[2018-08-24] MEDS: DULOXETINE 30 MG CAPSULE PO (08:22)
--- NOTE | 2018-08-24 09:20 | PT.IPTN ---
Current Diagnoses Spinal stenosis, lumbar region with neurogenic claudication (08/22/18) Intervertebral disc disorders with radiculopathy, lumbar region (08/22/18) Strain of muscle, fascia and tendon of lower back, subsequent encounter (08/22/18) Other specified postprocedural states (08/22/18) Surgery Performed Operation Date: 08/22/18 07:45 Actual Procedures p L5-S1 Revision Discectomy and TLIF - José Miguel Peace MD Physical Therapy Treatment Note M2 PT-IP Current Condition Start: 08/22/18 17:17 Freq: NEEDED Status: Active Protocol: Document 08/22/18 15:30 AB (Rec: 08/22/18 17:32 AB [email or web address]) Physical Therapy Current Condition Current Condition Evaluation Date 08/22/18 Treatment Diagnosis s/p L5S1 revision laminotomy L ; TLIF; difficulty in walking Onset Date 08/22/18 Precautions Lumbar Precautions Log Roll No Twisting Limit Bending Lifting Restriction of 10 lbs Gait Belt above Incisional Area M3 PT-IP Subjective Start: 08/22/18 17:17 Freq: NEEDED Status: Active Protocol: Document 08/24/18 09:20 GGD (Rec: 08/24/18 12:39 GGD [id number]) Subjective Physical Therapy Visit Type Type Treatment Note Visit Start Time 08:50 Visit Stop Time 09:20 Total Visit Minutes 30 Number of A P SUPERVISOR Visits 3 Physical Therapy Visit Comments Patient Comments Pt states he is ready to try stairs. Therapy Pain Assessment Pain When Pain Assessed At Rest Pain Present Pain Present Pain Reported Location Lower Back Intensity 7 Scale Used Numeric (1 - 10) M4 PT-IP Mobility and Gait Start: 08/22/18 17:17 Freq: NEEDED Status: Active Protocol: Document 08/24/18 09:20 GGD (Rec: 08/24/18 12:39 GGD [id number]) PT-Bed Mobility Assessment Rolling Type of Rolling Log Rolling Level of Assist Standby Assistance Supine to Sit Supine to Sit Standby Assistance Sit to Supine Sit to Supine Contact Guard Assistance Scooting Scooting to Edge of Bed Contact Guard Assistance PT-Transfer Assessment Sit to and From Stand Sit to and from Stand Contact Guard Assistance 1 Person Assistance Use of Upper Extremities Equipment Transfer Assistive Device Gait Belt Front Wheeled Walker Orthotic/Prosthetic Devices or Brace: No Transfers Transfer Destination Bed Toilet Gait Assessment Gait Gait Assistance Required: Contact Guard Assist Minimum Assistance 1 Person Assist Distance (Feet) 140 Able to Maintain Weight Bearing Status Yes During Gait Assistive Devices Assistive Device Gait Belt Front Wheeled Walker Orthotic/Prosthetic Devices or Brace: No Gait Deviations General Gait Pattern Antalgic Decreased Stride Length Decreased Feet Clearance Step-to Gait Comments Gait Comments Pt left decrease in foot clearance and shuffed gait pattern. Stair Climbing Assessment Evaluation Level of Assist On Stairs Contact Guard Assistance Devices Stair Climbing Assistive Devices Front Wheel Walker Technique/Endurance Stair Climbing Direction Ascend and Descend Stair Climbing Technique Step to Step Number of Steps Climbed 1 Query Text: Stair Climbing Set # Repetitions (reps) 1 Comments Stair Climbing Comments forward to ascend, backwards to descend M5 PT-IP Objective Assessments Start: 08/22/18 17:17 Freq: NEEDED Status: Active Protocol: Document 08/22/18 15:30 AB (Rec: 08/22/18 17:32 AB [email or web address]) Orientation Orientation/Cognition Level of Alertness Alert Orientation Name Age Birthday Month Date Year Day of Week Place Situation Safety Awareness Decreased Safety Awareness Gross Range of Motion Lower Extremity ROM Assessment Bilaterally Impaired Impairments pain limiting ROM on BLE Strength Lower Extremity Strength Assessment Bilaterally Impaired Comments Strength Comments LLE weaker than RLE LLE 3-/5 RLE 3+/5 Sensation Assessment Sensation Gross Sensation Left LE Impaired Light Touch Impaired M6 PT-IP Treatment Start: 08/22/18 17:17 Freq: NEEDED Status: Active Protocol: Document 08/24/18 09:20 GGD (Rec: 08/24/18 12:39 GGD [id number]) Physical Therapy Treatment Education Education Provided Precautions Safety M7 PT-IP Assessment and Plan Start: 08/22/18 17:17 Freq: NEEDED Status: Active Protocol: Document 08/24/18 09:20 GGD (Rec: 08/24/18 12:39 GGD [id number]) PT Summary Assessment and Plan Summary Assessment Summary Pt continues to improving with mobility. He was safe with stair mobility, but unable for flex at hips to place FWW down to descend forwards. Frequency of Treatment Frequency Of Treatment Twice a Day Treatment Plan Other Recommendations and Next Treatment stair mobility. Focus Recommendations To Nursing Amount of Assist Needed 1 Person Assist Discharge Recommendations PT Discharge Recommendations Home with 20/06 Assist Home Health
--- NOTE | 2018-08-24 09:40 | OT.IP.TRT ---
Current Diagnoses Spinal stenosis, lumbar region with neurogenic claudication (08/22/18) Intervertebral disc disorders with radiculopathy, lumbar region (08/22/18) Strain of muscle, fascia and tendon of lower back, subsequent encounter (08/22/18) Other specified postprocedural states (08/22/18) Surgery Performed Operation Date: 08/22/18 07:45 Actual Procedures p L5-S1 Revision Discectomy and TLIF - José Miguel Peace MD Occupational Therapy Treatment Note M2 OT-IP Current Condition Start: 08/23/18 08:58 Freq: Status: Active Protocol: Document 08/23/18 08:58 [facility] (Rec: 08/23/18 09:11 [facility] [id number]) Occupational Therapy Current Condition Current Condition Evaluation Date 08/23/18 Treatment Diagnosis spinal stenosis Diagnosis Onset Date 08/22/18 Post Operative Precautions Lumbar Precautions Log Roll No Twisting Limit Bending Lifting Restriction of 10 lbs Gait Belt above Incisional Area M3 OT- IP Subjective and Pain Start: 08/23/18 08:58 Freq: Status: Active Protocol: Document 08/24/18 09:37 [facility] (Rec: 08/24/18 09:40 [facility] [email or web address]) OT- Subjective Occupational Therapy Visit Type Type Patient Refusal Notes Pt states just got back in bed , wanting to rest, and to consider taking a shower later before lunch or tomorrow if not leaving today. Pt states to consider sleeping in his zero gravity chair at home and will have someone to help at home at all times.
[2018-08-24 12:00] VITALS: BP 141/86; PULSE 66; RESP 18; TEMP 36.4; O2SAT 95
--- NOTE | 2018-08-24 12:46 | P.DS_ITS ---
History of Present Illness Date Patient Seen: 08/24/18 Time Patient Seen: 12:44 Chief complaint: [id number] L5-S1 Narrative: 28-year-old male with a history of a left lumbar diskectomy at L5- S1. He began getting recurrence of symptoms with pain and weakness and numbness going down the left leg. He had failed conservative management with therapy injections and time and was admitted for surgery Discharge Providers Date of admission: 08/22/18 05:46 Primary care physician: Steffanie Anguiano MD Consults: 08/22/18 12:03 Consult to Occupational Therapy Evaluate & Treat Comment: Physician Instructions: Evaluate and treat Consult to Physical Therapy Evaluate & Treat Comment: Physician Instructions: Evaluate and Treat Discharge provider: José Miguel Peace MD Summary Discharge Diagnosis: Lumbar stenosis with radiculopathy Hospital Course: He is brought to the operating room on 08/22/2018 where he underwent a revision decompression and fusion at L5-S1. Postoperatively he was no longer having pain in the leg but was still having numbness and weakness. He slowly mobilized with physical therapy and by the date of discharge she was able to independently get out of bed and walk around. His pain was under good control with medication. Exam Vital Signs (past 8 hours): - 08/24/18 08:00 Temperature 98.0 F Pulse Rate 71 Respiratory Rate 16 Blood Pressure 129/77 Pulse Oximetry 95 Oxygen Delivery Method Nasal Cannula Oxygen Flow Rate 1 Const Orientation: alert and oriented x3 Back/Spine/Pelvis Other: Dressing clean dry intact. 5/5 motor both lower extremities except 4/5 left anterior tibialis, EHL, plantar flexion Objective Labs Result Diagrams: 08/23/18 05:17 Discharge Plan Discharge Plan Patient Disposition: Home Discharge comment: f/u 1.5 wks Discharge Med Rec/Prescriptions Prescriptions: New hydrocodone-acetaminophen 5-325 mg Tablet See Label Instructions .ROUTE .COMPLEX PRN (Reason: Pain, Moderate (4-6)) Qty: 40 RF: 0 hydroxyzine pamoate 25 mg Capsule 25 mg PO Q4HR PRN (Reason: Nausea And Vomiting) Qty: 20 RF: 0 Continue ibuprofen 600 mg tablet 600 mg PO TID-QID PRN (Reason: pain) Qty: 60 RF: 0 omeprazole 20 mg Capsule,Delayed Release(Dr/Ec) 20 mg PO DAILY RF: 0 Discontinued ibuprofen 400 mg Tablet 400 mg PO Q4-6H PRN (Reason: pain) RF: 0 Follow up/Referrals: Steffanie Anguiano MD [Primary Care Provider] - Provider Discharge Instructions Activity: limited BLT 10 lbs max Skin/Wound/Dressing Care Dressing: may change dressing and shower POD#5 Visit Report/Discharge Packet Instructions: DI for Transforaminal Lumbar Interbody Fusion Visit Report Forms: Stroke Signs & Symptoms Discharge Data Primary Care Provider: Steffanie Anguiano Attending Provider: José Miguel Peace Admit Date/Time: 08/22/18 05:46 Quality VTE Deep Vein Thrombosis/Pulmonary Embolism Present on Admission: No
--- NOTE | 2018-08-24 14:54 | CM.DPC ---
DC Note: DC order in place today. Contacted [facility] ; spoke w/Mary and then Joy, a inbound call center representative from [facility] billing dept P# [phone]. According to Joy, w/pt's [employer], there will be a lengthy authorization process and it needed to start w/signed documentation from the surgeon indicating pt's need for HH. Explained to pt this afternoon that the HH authorization would not be feasible today and pt understood and felt his DC plan was safe; home w/family to assist. Re: walker, ECHO VASCULAR TECH Becca explained in pt's room (w/this EXECUTIVE CREATIVE DIRECTOR present) that therapy team had investigated ordering a tall walker for pt but it would take weeks to arrive. Pt had brought in a tall (enough) walker from home and forgot. Becca alerted pt to this. Met w/pt and his Dad in room before they left the floor, all aware agreeable to DCP, home w/family. SAY Tirado
--- NOTE | 2018-08-24 15:02 | PC.NURSE ---
1500 Pt dcd to home w/family. Escorted out via w/c.
== END 2018-08-24 15:03 | disposition home or self-care (01) | DRG 455 ==
PROVIDERS: Admitting Provider Orthopaedic Surgery; Visit Provider Orthopaedic Surgery
PROC: 0SG30AJ Fusion of Lumbosacral Joint with Interbody Fusion Device, Posterior Approach, Anterior Column, Open Approach (ICD-10-PCS; principal; 2018-08-22 07:45)
DX: M51.16 Intervertebral disc disorders with radiculopathy, lumbar region (principal); M48.062 Spinal stenosis, lumbar region with neurogenic claudication; S39.012D Strain of muscle, fascia and tendon of lower back, subsequent encounter; K21.9 Gastro-esophageal reflux disease without esophagitis; M48.07 Spinal stenosis, lumbosacral region; M85.68 Other cyst of bone, other site
CPT/HCPCS: 36415; 72100; 76001; 85014; 85018; 94760; 97116; 97162; 97165; 97530; 97535; C1776; C1788; J0595; J0690; J1170; J2274; J3010